=== PATIENT | male | born 1965 | race Two or more races ===

== ENCOUNTER → 2020-07-27 14:41 | Outpatient (BNVA) | payer OTHER, SELFPAY | PROVIDERS: PCP Internal Medicine; Visit Provider Urology | DX: N45.1 Epididymitis (principal); E29.1 Testicular hypofunction; N52.9 Male erectile dysfunction, unspecified | CPT/HCPCS: 99214 ==

== ENCOUNTER 2020-08-20 17:23 | Emergency (ER) | payer OTHER, SELFPAY ==
--- NOTE | 2020-08-20 18:29 | CT_ITS ---
EXAMINATION: CT ABDOMEN AND PELVIS WITHOUT CONTRAST CLINICAL INFORMATION: Right flank pain COMPARISON: None TECHNIQUE: Multidetector volumetric imaging was performed from the superior aspect of the liver through the pubic symphysis. Sagittal and coronal reformatted images were obtained on the technologist's workstation. This CT examination was performed using dose optimization techniques as appropriate, variously including the following: *Automated exposure control *Adjustment of mA and/or kV according to patient size (this includes techniques or standardized protocols for targeted exams where dose is matched to indication/reason for exam; i.e. extremities or head) *Use of iterative reconstruction technique DLP: 825 mGy-cm FINDINGS: LUNG BASES: Atelectasis present at the right lung base LIVER, GALLBLADDER, AND BILIARY TREE: The liver is normal in size, shape, and attenuation. No focal hepatic lesion or biliary ductal dilatation is present. The gallbladder is contracted but otherwise unremarkable with no evidence of radiopaque gallstones, gallbladder wall thickening, or obvious pericholecystic inflammatory changes. PANCREAS: Unremarkable. SPLEEN: Unremarkable. ADRENAL GLANDS: Unremarkable. KIDNEYS AND URETERS: The kidneys are normal in size, shape, and attenuation. A benign left renal cyst is seen. No solid renal masses are present. No hydronephrosis, hydroureter, or calculi seen. No perinephric stranding. BLADDER: Unremarkable. GASTROINTESTINAL TRACT: The small and large bowel are unremarkable. The appendix is unremarkable. ABDOMINAL WALL: No significant hernia is appreciated. LYMPH NODES: Normal. VASCULAR: Unremarkable. PELVIC VISCERA: Prostate and seminal vesicles appear normal. OSSEOUS STRUCTURES: Mild degenerative changes present in the lower thoracic and upper lumbar spine. CT/CT abdomen pelvis wo con IMPRESSION: A cause for the patient's right flank pain is not found. No renal calculi or hydronephrosis is seen. The appendix is normal. Incidental note made of a benign left renal cyst.
[2020-08-20 18:36] VITALS: BP 106/68; PULSE 78; RESP 16; TEMP 37.1; O2SAT 100; BMI 31.4
--- NOTE | 2020-08-20 18:42 | ED.GENADULT ---
HPI - General Adult General Chief complaint: Back Pain/Injury Stated complaint: back pain Time Seen by Provider: 08/20/20 18:29 Source: patient Mode of arrival: ambulatory Limitations: no limitations History of Present Illness HPI narrative: patient presents to ED for multiple complaints. Patient presents to ED for 7 days with dysuria and flank pain. Patient's concern for STD. Patient states he was having sex 7 days ago and the condom broke and ever since he has had symptoms. Patient states no nausea, vomiting, fever, chills, or recent trauma to the back or abdomen area. Patient denies any testicular pain, testicular swelling, or penile lesions. Patient denies any penile discharge. Related Data Home Medications Medication Instructions Recorded Confirmed tamsulosin 0.4 mg capsule 0.4 mg PO BEDTIME 07/27/20 07/27/20 Previous Rx's Medication Instructions Recorded doxycycline hyclate 100 mg tablet 100 mg PO BID 28 Days #56 tab 07/27/20 cyclobenzaprine 10 mg PO TID PRN #18 tab 08/20/20 naproxen 500 mg PO BID PRN #20 tab 08/20/20 Allergies Allergy/AdvReac Type Severity Reaction Status Date / Time Sulfa (Sulfonamide Allergy Unknown Verified 06/15/20 00:00 Antibiotics) sulfamethoxazole Allergy Unknown HIVES Unverified 06/30/20 18:25 [From BACTRIM] trimethoprim [From BACTRIM] Allergy Unknown HIVES Unverified 06/30/20 18:25 Review of Systems Review of Systems: Yes all other systems are reviewed and are negative Constitutional: Constitutional: Reports as per HPI and Reports no additional constitutional complaints Eyes: Eyes: Reports as per HPI and Reports no additional eye complaints ENT: Reports system reviewed and no additional complaints, except as documented and Reports as per HPI Cardiovascular: Cardiovascular: Reports as per HPI and Reports no additional cardiovascular complaints Respiratory: Respiratory: Reports as per HPI and Reports no additional respiratory complaints Gastrointestinal: Gastrointestinal: Reports as per HPI and Reports no additional gastrointestinal complaints Genitourinary: Comments: Dysuria Musculoskeletal: Musculoskeletal: Reports no additional musculoskeletal complaints and Reports as per HPI Comments: flank pain Neurologic: Reports system reviewed and no additional complaints, except as documented and Reports as per HPI Psychiatric: Psychiatric: Reports no additional psychiatric complaints and Reports as per HPI Endocrine: Endocrine: Reports no additional endocrine complaints and Reports as per HPI [facility] Past Medical History Medical History (Updated 08/20/20 @ 19:46 by IVAN Shrestha) Diabetes Prostate pain Social History Social History Alcohol intake: never Smoked in Last 30 Days: No Use of substances other than those prescribed or required for medical reasons: No Advance Directives: No Advance Directives Information Provided: Yes Physical Exam Vital Signs: Vital Signs: Last Vital Signs Temp 98.7 F 08/20/20 18:36 Pulse 78 08/20/20 18:36 Resp 16 08/20/20 18:36 BP 106/68 08/20/20 18:36 Pulse Ox 100 08/20/20 18:36 Body Mass Index 31.4 Const: General: cooperative, healthy appearing, comfortable, no acute distress, well developed and alert Orientation/consciousness: oriented to place, oriented to time and patient oriented x3 HENMT: Head: Yes normal to inspection Eyes: General: appearance normal, both eyes and all related structures Visual Blackburn: normal visual blackburn by confrontation Neck: Neck: Yes normal visual inspection and Yes full ROM Chest: Chest palpation & inspection: normal inspection of the chest, normal palpation of entire chest wall and no localized rib tenderness Resp: Effort & Inspection: normal respiratory effort and able to speak in complete sentences Auscultation: clear to auscultation bilaterally Cardio: Jugular venous distension: no JVD Heart sounds: S1 normal heart sound present and S2 normal heart sound present GI: Inspection: Yes normal to inspection and No abdominal wall ecchymosis Palpation (GI): Soft to palpation, not firm, nontender, no guarding, not rigid and hepatosplenomegaly present : Other: negative for any testicular lesions, mass, swelling, or tenderness. Negative for any penile discharge or penile lesions. General: No CVA tenderness and Yes no CVA tenderness Back/Spine/Pelvis: Back: no CVA tenderness, No CVA tenderness and No back tenderness Skin: General skin exam: no rashes or lesions noted Neuro: General: oriented to person, oriented to place, oriented to time, patient oriented x3, gait normal and CN's II-XI intact bilaterally Cranial nerves: Yes CN's II-XII intact bilaterally Extrem: General: Yes normal to inspection and Yes full ROM Psych: Appearance: grossly normal, well kempt and not disheveled Course Course Course Narrative: patient basic urine analysis will be sent and also chlamydia gonorrhea urinalysis. Patient also sent for abdominal CT scan to rule out kidney stone. Patient is stable Reevaluation(s) Reevaluation #1: Patient's CT scan came back negative for kidney stones. Patient UA negative for any blood or bacteria to indicate UTI. Patient will be treated empirically for STIs. CT scan shows lumbar spine arthritis which could be contributing to patient's back pain Time: 19:35 Medical Decision Making MDM Narrative Medical decision making narrative: lumbar arthritis. STI exposure Lab Data Labs: Lab Results 08/20/20 08/20/20 Range/Units 19:08 19:08 Urine Color YELLOW Urine Appearance CLEAR Urine pH 5.5 (5.0-8.0) Ur Specific [place] <= 1.005 (1.005-1.025) Urine Protein NEG (NEG-TRACE) MG/DL Urine Glucose (UA) NEG (NEG) MG/DL Urine Ketones NEG (NEG) MG/DL Urine Blood NEG (NEG) Urine Nitrite NEG (NEG) Ur Leukocyte Esterase NEG (NEG) Chlam trachomat DNA PCR Cancelled N.gonorrhoeae DNA (PCR) Cancelled Discharge Plan Discharge Clinical Impression: Lumbar radiculopathy Patient Disposition: Home, Self-Care Instructions: Lumbar Radiculopathy (ED), Arthritis (ED) Prescriptions: New naproxen 500 mg tablet 500 mg PO BID PRN (Reason: pain) Qty: 20 RF: 0 cyclobenzaprine 10 mg tablet 10 mg PO TID PRN (Reason: muscle spasm) Qty: 18 RF: 0 No Action tamsulosin [Flomax] 0.4 mg capsule 0.4 mg PO BEDTIME RF: 0 doxycycline hyclate 100 mg tablet 100 mg PO BID 28 Days Qty: 56 RF: 0 Referrals: Katie Mooney MD [Primary Care Provider] - 2 days (lumbar arthritis.) Interventions: ED Discharge Assessment Last Done: 08/20/20 20:20 Discharge Date/Time: 08/20/20 20:31 Print Language: Yoruba
[2020-08-20 19:17] LABS: Appearance Urine CLEAR; Color Urine YELLOW; Glucose Urine UA NEG (NEG); Leukocyte Esterase Urine NEG (NEG); Nitrite Urine NEG (NEG); PH 5.5 (5.0-8.0); Specific Gravity - Urine <= 1.005 (1.005-1.025); Urine Blood NEG (NEG); Urine Ketones NEG (NEG); Urine Protein NEG (NEG-TRACE)
[2020-08-20] MEDS: Azithromycin 500 MG TABLET 1000 MG PO (20:12)
[2020-08-20] MEDS: cefTRIAXone sodium 250 MG, Lidocaine HCl 1 % MPF 0.9 ML IM (20:12)
[2020-08-20] MEDS: Ibuprofen 800 MG TABLET PO (20:12)
[2020-08-21 14:50] LABS: CT PCR NOT DETECTED (Not Detect.); NG PCR NOT DETECTED (Not Detect.)
== END 2020-08-20 20:31 | disposition home or self-care (01) ==
PROVIDERS: Physician Assistant; Emergency Provider Emergency Medicine; PCP Internal Medicine
DX: M54.16 Radiculopathy, lumbar region (principal); Z79.899 Other long term (current) drug therapy; Z20.2 Contact with and (suspected) exposure to infections with a predominantly sexual mode of transmission
CPT/HCPCS: 74176; 81003; 87491; 87591; 96372; 99284; J0696

== ENCOUNTER → 2020-08-24 15:13 | Outpatient (BNVA) | payer OTHER, SELFPAY | PROVIDERS: PCP Internal Medicine; Referring Provider Internal Medicine; Visit Provider Urology | DX: N45.1 Epididymitis (principal) | CPT/HCPCS: 99212 ==

== ENCOUNTER 2020-09-05 12:52 | Outpatient (REF) | payer OTHER, SELFPAY ==
[2020-09-10 11:41] LABS: Testosterone, Total 240 ng/dL (250-1100)
== END 2020-09-05 12:53 | disposition home or self-care (01) ==
LOC: HO.10HDL 12:52
PROVIDERS: Visit Provider Urology
DX: R79.89 Other specified abnormal findings of blood chemistry (principal)
CPT/HCPCS: 84403

== ENCOUNTER → 2020-09-14 13:02 | Outpatient (BNVA) | payer OTHER, SELFPAY | PROVIDERS: PCP Internal Medicine; Visit Provider Urology | DX: E29.1 Testicular hypofunction (principal); N41.9 Inflammatory disease of prostate, unspecified; N50.812 Left testicular pain | CPT/HCPCS: 99212 ==

== ENCOUNTER 2020-10-03 06:26 | Day surgery (SDC) | payer OTHER, SELFPAY ==
[2020-09-26 12:54] VITALS: BMI 31.4
--- NOTE | 2020-09-30 12:06 | HO.ANESPROP2 ---
Documented by User: Ashley Dewitt 09/30/20 12:08 HPI - Anesthesia Eval Consult details Narrative: 54yo M for Inguinal Denervation Testicle PMFSH Past Medical History Medical History Anxiety Diabetes Low back pain Prostate pain Surgical History Surgical History Hx of tonsillectomy Social History Social History Alcohol intake: current Alcohol intake frequency: holidays/special occasions only Alcohol type: beer and wine Smoking Status: Never smoker Use of substances other than those prescribed or required for medical reasons: No Advance Directives: No Advance Directives Information Provided: No Advance Directives on File: No Meds Allergies Allergy/AdvReac Type Severity Reaction Status Date / Time Sulfa (Sulfonamide Allergy Unknown Hives Verified 09/26/20 12:53 Antibiotics) sulfamethoxazole Allergy Unknown HIVES Verified 09/26/20 12:53 [From BACTRIM] trimethoprim [From BACTRIM] Allergy Unknown HIVES Verified 09/26/20 12:53 Home Medications Medication Instructions Recorded Confirmed Type tamsulosin 0.4 mg capsule 0.4 mg PO BEDTIME 07/27/20 07/27/20 History Exam Exam Date and Time: September 30, 2020 1206 Height,Weight and Vital Signs: Height 5 ft 11 in Weight 102.058 kg Assessment and Plan Assessment Anesthesia Assessment: Chart Reviewed Documented by User: Faheem Beltrán 10/03/20 07:15 [facility] Past Medical History Medical History Anxiety Diabetes Low back pain Prostate pain Surgical History Surgical History Hx of tonsillectomy Social History Social History Alcohol intake: current Alcohol intake frequency: holidays/special occasions only Alcohol type: beer and wine Smoking Status: Never smoker Use of substances other than those prescribed or required for medical reasons: No Advance Directives: No Advance Directives Information Provided: No Advance Directives on File: No Meds Allergies Allergy/AdvReac Type Severity Reaction Status Date / Time Sulfa (Sulfonamide Allergy Unknown Hives Verified 09/26/20 12:53 Antibiotics) sulfamethoxazole Allergy Unknown HIVES Verified 09/26/20 12:53 [From BACTRIM] trimethoprim [From BACTRIM] Allergy Unknown HIVES Verified 09/26/20 12:53 Home Medications Medication Instructions Recorded Confirmed Type tamsulosin 0.4 mg capsule 0.4 mg PO BEDTIME 07/27/20 07/27/20 History Exam Airway Mallampati Class: III TM Dist: >3cm Neck ROM: Full
[2020-10-03] VITALS (8 sets, daily range): BP systolic 115–143; BP diastolic 72–93; PULSE 69–86; RESP 16; TEMP 36.1–36.4; O2SAT 95–99
[2020-10-03] MEDS: ceFAZolin Sodium/Dextrose,Iso 2 GM/50 ML PIGGYBACK IV (07:14)
[2020-10-03] MEDS: Lactated Ringers 1,000 ML 100 ML IVCONT (07:14)
[2020-10-03 07:20] LABS: Glucose, Whole Blood 121 mg/dL (60-115)
--- NOTE | 2020-10-03 08:14 | MHC.SHP ---
Pre-Procedural Eval Section B Chief Complaint: Testicular Pain Details of Present Illness: Left inguinal denervation Relevant Family History (Specify if Yes): No Relevant Social History: None Present Medications: see Short Stay Collaborative assessment Medical History: No relevant PMH History of Previous Operations: No relevant previous surgery Allergies: Allergies Allergy/AdvReac Type Severity Reaction Status Date / Time Sulfa (Sulfonamide Allergy Unknown Hives Verified 09/26/20 12:53 Antibiotics) sulfamethoxazole Allergy Unknown HIVES Verified 09/26/20 12:53 [From BACTRIM] trimethoprim [From BACTRIM] Allergy Unknown HIVES Verified 09/26/20 12:53 Plan I have reviewed the history and physical and performed a pertinent physical examination on my patient. No changes have occurred unless specified.
--- NOTE | 2020-10-03 09:33 | PM.OP ---
Brief Operative Note Date of Service: 10/03/20 Pre-op diagnosis: Left testicular pain Post-op diagnosis: same Procedure: Microscopic Denervation left testicle Surgeon: Lyle Mahmood MD Anesthesia: GLMA Estimated blood loss (mL): 0 Pathology: none sent Condition: stable Disposition: same day
[2020-10-03] MEDS: ondansetron HCL 4 MG/2 ML VIAL IVPUSH (09:40)
--- NOTE | 2020-10-03 09:41 | W.PM.OPN ---
Operative Note Operative Note Date of Service: 10/03/20 Narrative: PreOperative Diagnosis: Left testicular pain Post Operative Diagnosis: Left testicular pain Procedure: Left inguinal microscopic denervation Surgeon: Dr Lyle Mahmood Anesthesia: General Indications for procedure: This is a 54-year-old male. Had presented for left testicular pain. Treated conservatively with anti-inflammatories. Every presentation and persistent pain. In office testicular cord block was performed. This provided relief for over 12 hours. Pain recurred. Since he did get initial relief with the testicular cord block is a suitable candidate for a microscopic inguinal denervation. This was discussed and he wishes to proceed. Understands the primary risks of 1 of hematoma and loss of testicle. Procedure: After informed consent was verified the patient was brought to the operating room and placed in a supine position. anesthesia was administered per protocol. Patient was prepped and draped in sterile fashion. Incision in the subinguinal left region was marked. Local anesthetic was placed subcutaneously and a 5 cm incision was made. Incision was carried down through the subcutaneous fat and toward the testicular cord. We dissected down and the cord was isolated and raised. A paddle pop was placed under the cord. The cord was then divided length ways through the muscle fibers. The cremaster fibers were then divided circumferentially using bipolar cautery and sharp dissection. With the divided cremasteric fibers the cord was then split into the bundles. There was the vascular bundle and the associated vas deferens cord. Attention was 1st paid to the vas deferens cord. The covering invagination is were divided using bipolar cautery and sharp dissection. When the cord had been exposed over 1 cm the area sharp blade was taken and then gently stroke against the vas deferens in order to denervate a 1 cm segment. Be vascular pedicle had been isolated in the fibers surrounding this were also divided. The artery was identified using Doppler pulse. When the dissection was completed the cord was placed back to its normal position. The incision was irrigated. The subcutaneous tissue was closed with interrupted 3-0 Vicryl and the skin reapproximated with a running 4-0 Monocryl suture. Skin dressing using glue was applied. He tolerated procedure well was extubated in the operating room transferred in stable condition to recovery area. Pathology: None Drains: None
--- NOTE | 2020-10-03 10:59 | HO.POSTANES ---
Post Anesthesia Evaluation Post Anesthesia Evaluation Vital Signs: Vital Signs Temp Pulse Resp BP Pulse Ox 10/03/20 10:35 97 F 77 16 123/78 96 10/03/20 10:20 75 16 129/81 95 10/03/20 10:05 69 16 132/86 99 10/03/20 09:50 85 16 132/80 97 10/03/20 09:45 83 16 121/77 96 10/03/20 09:40 86 16 143/93 H 96 10/03/20 09:35 97.6 F 81 16 138/92 H 96 10/03/20 06:54 96.9 F 76 16 115/72 96 Anesthesia: General LMA Mental Status: Awake Pain Control: Satisfactory Nausea/Vomiting: None Hydration: Adequate Anesthesia-Related Issues: No Anes. Related Issues
== END 2020-10-03 11:15 | disposition home or self-care (01) ==
PROVIDERS: PCP Internal Medicine; Visit Provider Urology
PROC: (CPT 55899; principal; 2020-10-03 08:10)
DX: N50.812 Left testicular pain (principal); E29.1 Testicular hypofunction; N41.9 Inflammatory disease of prostate, unspecified; E11.9 Type 2 diabetes mellitus without complications; Z79.899 Other long term (current) drug therapy; Z88.2 Allergy status to sulfonamides
CPT/HCPCS: 55899; 69990; 82947; J0690; J1100; J2250; J2405; J3010

== ENCOUNTER → 2020-11-29 15:21 | Outpatient (BNVA) | payer OTHER, SELFPAY | PROVIDERS: PCP Internal Medicine; Visit Provider Urology ==

== ENCOUNTER → 2021-01-11 10:38 | Outpatient (BNVA) | payer OTHER, SELFPAY | PROVIDERS: PCP Internal Medicine; Visit Provider Urology | DX: Z13.89 Encounter for screening for other disorder (principal) | CPT/HCPCS: 99212 ==

== ENCOUNTER 2021-04-05 14:46 | Outpatient (REF) | payer OTHER, SELFPAY ==
[2021-04-05 15:09] LABS: Hematocrit 41.8 % (42-52); Hemoglobin 14.2 g/dl (14.0-18.0); Mean Corpuscular Volume 85.3 fL (80-98); Mean Platelet Volume 10.6 fL (9.4-12.4); Platelet Count 260 X10*3/uL (160-400); Red Cell Distribution Width 13.2 % (11.0-16.0); White Blood Count 6.6 X10*3/uL (4.8-10.8)
[2021-04-10 17:33] LABS: Testosterone, Total 230 ng/dL (250-1100)
== END 2021-04-05 14:47 | disposition home or self-care (01) ==
LOC: HO.LAB 14:46
PROVIDERS: PCP Internal Medicine; Visit Provider Urology
DX: Z12.5 Encounter for screening for malignant neoplasm of prostate (principal); E29.1 Testicular hypofunction; N13.8 Other obstructive and reflux uropathy; N40.1 Benign prostatic hyperplasia with lower urinary tract symptoms
CPT/HCPCS: 36415; 84153; 84403; 85027

== ENCOUNTER → 2021-04-13 14:30 | Outpatient (BNVA) | payer OTHER, SELFPAY | PROVIDERS: PCP Internal Medicine; Visit Provider Urology | DX: E29.1 Testicular hypofunction (principal) | CPT/HCPCS: 99212 ==

== ENCOUNTER 2021-10-11 15:17 | Outpatient (REF) | payer OTHER, SELFPAY ==
[2021-10-11 16:51] LABS: Albumin Level 4.1 g/dL (3.5-5.0)
[2021-10-12 14:11] LABS: Sex Hormone Binding Globulin 30 nmol/L (22-77)
[2021-10-15 09:42] LABS: Testosterone, Total 128 ng/dL (250-1100)
== END 2021-10-11 15:18 | disposition home or self-care (01) ==
LOC: HO.LAB 15:17
PROVIDERS: Visit Provider Urology
DX: E29.1 Testicular hypofunction (principal)
CPT/HCPCS: 36415; 82040; 84270; 84403

== ENCOUNTER → 2021-10-17 16:02 | Outpatient (BNVA) | payer OTHER, SELFPAY | PROVIDERS: PCP Internal Medicine; Visit Provider Urology ==

== ENCOUNTER 2022-04-03 14:21 | Outpatient (REF) | payer OTHER, SELFPAY ==
[2022-04-03 15:08] LABS: Hematocrit 42.6 % (42.0-52.0); Hemoglobin 14.4 g/dl (14.0-18.0); Mean Corpuscular HGB Conc 33.8 g/dl (31.0-36.0); Mean Corpuscular Hemoglobin 28.7 pg (27.0-33.0); Mean Corpuscular Volume 84.9 fL (80.0-98.0); Mean Platelet Volume 10.3 fL (9.4-12.4); Platelet Count 256 X10*3/uL (160-400); Red Blood Count 5.02 X10*6/uL (4.60-5.80)
[2022-04-03 15:54] LABS: Prostate Specific Antigen 0.49 ng/mL (<0.05-4.0)
[2022-04-08 18:45] LABS: Testosterone, Total 205 ng/dL (250-1100)
== END 2022-04-03 14:22 | disposition home or self-care (01) ==
LOC: HO.LAB 14:21
PROVIDERS: PCP Internal Medicine; Visit Provider Urology
DX: E29.1 Testicular hypofunction (principal); Z12.5 Encounter for screening for malignant neoplasm of prostate
CPT/HCPCS: 36415; 84153; 84403; 85027

== ENCOUNTER → 2022-04-13 13:25 | Outpatient (BNVA) | payer OTHER, SELFPAY | PROVIDERS: PCP Internal Medicine; Visit Provider Urology | DX: E29.1 Testicular hypofunction (principal); E34.9 Endocrine disorder, unspecified; N41.1 Chronic prostatitis; Z79.899 Other long term (current) drug therapy | CPT/HCPCS: 99212 ==

== ENCOUNTER → 2022-04-20 13:38 | Outpatient (BNVA) | payer OTHER, SELFPAY | PROVIDERS: PCP Internal Medicine; Visit Provider Urology | DX: E29.1 Testicular hypofunction (principal) | CPT/HCPCS: 96372 ==

== ENCOUNTER 2022-04-30 22:40 | Emergency (ER) | payer OTHER, SELFPAY ==
--- NOTE | ~2022-04-30 | CT_ITS ---
EXAMINATION: CT ABDOMEN AND PELVIS WITHOUT CONTRAST CLINICAL INFORMATION: 56-year-old male with right lower quadrant pain. COMPARISON: 08/20/2020 TECHNIQUE: Multidetector volumetric imaging was performed from the superior aspect of the liver through the pubic symphysis. Sagittal and coronal reformatted images were obtained on the technologist's workstation. This CT examination was performed using dose optimization techniques as appropriate, variously including the following: *Automated exposure control *Adjustment of mA and/or kV according to patient size (this includes techniques or standardized protocols for targeted exams where dose is matched to indication/reason for exam; i.e. extremities or head) *Use of iterative reconstruction technique DLP: 811 mGy-cm FINDINGS: LUNG BASES: Linear opacities of platelike atelectasis in the visualized bases. No pulmonary consolidation or pleural effusion at either lung base. LIVER: The liver has normal size, shape, and attenuation. No evidence of liver mass. GALLBLADDER AND BILIARY TREE: Gallbladder is without radiopaque stones, wall thickening or pericholecystic fluid. No dilated bile ducts. PANCREAS: Normal. No edema, pancreatic ductal dilatation or mass. SPLEEN: Normal. ADRENAL GLANDS: Normal. KIDNEYS AND URETERS: Kidneys are normal in size. No nephrolithiasis or hydronephrosis. 3.2 cm simple cortical cyst of the upper pole of the left kidney is unchanged. No renal imaging follow-up recommended. BLADDER: The bladder is empty but grossly normal. No bladder calculi. BOWEL AND PERITONEUM: Stomach is unremarkable. No dilated loops of bowel. The appendix is normal. No overt bowel wall thickening or mesenteric fat stranding. No ascites or pneumoperitoneum. ABDOMINAL WALL: No abdominal wall hernia. An intermuscular lipoma between the external and internal oblique muscles of the right lateral abdominal wall measures approximately 1.4 x 4.7 x 6 cm. VASCULATURE: Unremarkable. LYMPH NODES: No pathologic sized lymph nodes in the abdomen or pelvis. No inguinal lymphadenopathy. PELVIC VISCERA: Unremarkable. SKELETAL: Chronic multilevel degenerative arthropathy of the thoracolumbar spine. No suspicious bone lesions. CT/CT abdomen pelvis wo con IMPRESSION: * No acute imaging abnormalities in the abdomen or pelvis compared to 08/20/2020. * No dilated bowel loops. No inflammatory changes. No evidence of appendicitis. * No nephrolithiasis or hydronephrosis.
[2022-04-30 22:52] VITALS: BP 118/69; PULSE 73; RESP 15; TEMP 36.8; O2SAT 94; BMI 34.2
[2022-04-30 23:29] LABS: MANUAL DIFF FLAG NO
[2022-04-30 23:30] LABS: Basophils Percent Auto 0.5 % (0-2); Eosinophils Absolute Auto 0.1 X10*3/uL (0.0-0.4); Eosinophils Percent Auto 1.6 % (0-4); Hematocrit 41.8 % (42.0-52.0); Hemoglobin 14.2 g/dl (14.0-18.0); Imm Gran Abs Auto 0.02 X10*3/uL (0.00-0.03); Imm Gran Pct Auto 0.2 % (0.0-0.4); Lymphocytes Absolute Auto 2.5 X10*3/uL (1.2-4.9); Lymphocytes Percent Auto 30.6 % (20-40); Mean Corpuscular Hemoglobin 28.4 pg (27.0-33.0); Mean Corpuscular Volume 83.6 fL (80.0-98.0); Mean Platelet Volume 10.2 fL (9.4-12.4); Monocytes Absolute Auto 0.6 X10*3/uL (0.1-1.2); Monocytes Percent Auto 6.9 % (2-11); Neutrophils Percent Auto 60.2 % (45-73); Platelet Count 272 X10*3/uL (160-400); Red Cell Distribution Width 12.8 % (11.0-16.0); White Blood Count 8.3 X10*3/uL (4.8-10.8)
[2022-04-30 23:37] LABS: Appearance Urine CLEAR; Color Urine YELLOW; Glucose Urine UA NEG (NEG); Leukocyte Esterase Urine NEG (NEG); Nitrite Urine NEG (NEG); PH 6.5 (5.0-8.0); Urine Blood NEG (NEG); Urine Ketones NEG (NEG); Urine Protein NEG (NEG-TRACE)
[2022-04-30 23:47] LABS: Alanine Aminotransferase 27 U/L (0-40); Albumin Level 4.3 g/dL (3.5-5.0); Alkaline Phosphatase 65 U/L (39-117); Anion Gap 11 (12-20); Aspartate Amino Transferase 15 U/L (5-37); Bilirubin Direct 0.2 mg/dL (0.0-0.5); Bilirubin Total 0.3 mg/dL (0.0-1.0); Blood Urea Nitrogen 11 mg/dL (9-16); Calcium 9.3 mg/dL (8.4-10.2); Carbon Dioxide 25 mmol/L (22-29); Chloride 106 mmol/L (96-108); Creatinine Clr Calc Pharmacy 112.3; Estimated Glomerular Filt Rate > 60; Glucose Random 140 mg/dL (60-115); Lipase 23 U/L (8-78); Potassium 4.1 mmol/L (3.3-5.1); Sodium 138 mmol/L (135-145); Total Protein 7.4 g/dL (6.5-8.0)
[2022-05-01 07:40] VITALS: BP 114/73; PULSE 60; RESP 18; TEMP 36.3; O2SAT 95
--- NOTE | 2022-05-01 07:53 | ED.ABDPAIN ---
HPI - Abdominal Pain General Chief Complaint: Abdominal Pain Stated Complaint: Abd pain Time Seen by Provider: 05/01/22 07:53 Source: patient, old records reviewed and per diem interpreter Mode of arrival: ambulatory Limitations: no limitations History of Present Illness HPI narrative: 56 yo male with hx of BPH, DM, here with c/o RLQ abdominal pain x 4 days, had been constipated but was able to go yesterday. He feels nauseated at times as well - no vomiting. Pain is worse with movements. He feels at times it pinches when he urinates. MD elicited complaint: abdominal pain Pertinent past history: none Onset (ago): day(s) (4) Location: RLQ Severity: moderate Quality: sharp Radiation: none Migration to: no migration Exacerbating factors: movement Relieving factors: nothing Associated symptoms: nausea and other (he also c/o increased acid production) Related Data Previous Rx's Medication Instructions Recorded cyclobenzaprine 10 mg tablet 10 mg PO TID PRN muscle spasm #18 08/20/20 tabs naproxen 500 mg tablet 500 mg PO BID PRN pain #20 tabs 08/20/20 tramadol 50 mg tablet 50 mg PO Q6H PRN pain #14 tabs 10/03/20 tamsulosin 0.4 mg capsule 0.4 mg PO BEDTIME #90 caps 10/10/20 testosterone 1 % (50 mg/5 gram) 100 mg transdermal DAILY 30 days 10/17/21 transdermal gel packet #300 grams syringe with needle 3 mL 21 gauge #50 ea 04/13/22 x 1 1/2 (BD Luer-Dell Syringe) testosterone cypionate 200 mg/mL 80 mg (0.4 mL) subcut QWEEK 4 04/13/22 intramuscular oil weeks #4 mL (Depo-Testosterone) safety needles 25 gauge x 1 1/2 #50 ea 04/20/22 famotidine 20 mg tablet (Pepcid) 20 mg PO DAILY PRN abdominal 05/01/22 discomfort #30 tabs ondansetron 4 mg disintegrating 4 mg PO Q8H PRN nausea and 05/01/22 tablet vomiting #20 tabs Allergies Allergy/AdvReac Type Severity Reaction Status Date / Time Sulfa (Sulfonamide Allergy Unknown Hives Verified 04/13/22 10:50 Antibiotics) sulfamethoxazole Allergy Unknown HIVES Verified 04/13/22 10:50 [From BACTRIM] trimethoprim [From BACTRIM] Allergy Unknown HIVES Verified 04/13/22 10:50 Review of Systems Review of Systems Constitutional : No Weight loss, No Fever, No Chills ENT/Mouth : No sore throat, No Rhinorrhea Eyes: No Swelling, No Redness Cardiovascular : No Chest Pain, No SOB, NoEdema Respiratory : No Cough, No Sputum, No Wheezing Gastrointestinal : Positive Nausea, no Vomiting, no Diarrhea, positive abdominal Pain, No Hematochezia, No Melena, pos constipation Genitourinary : pos Dysuria, No Urinary Frequency, No Hematuria, No Urgency Musculoskeletal : No joint pain, No Myalgias, No Joint Swelling Skin : No Skin Lesions, No rash Neuro : No Weakness, No Numbness, No Dizziness, No Headache Psych : No Anxiety/Panic, No Depression Heme/Lymph: No Bruising, No Lymphadenopathy Endocrine : No Polyuria, No Polydipsia All other systems reviewed and are negative. [facility] Past Medical History Attestation statement: The following information was validated with the patient. Medical History Anxiety Bladder outlet obstruction Diabetes Low back pain Low testosterone Nocturia Prostate pain Surgical History Hx of tonsillectomy Social History Social History Alcohol intake: current Alcohol intake frequency: holidays/special occasions only Alcohol type: beer and wine Advance Directives: No Advance Directives Information Provided: No Physical Exam ED Vital Signs: Vital Signs - 24 hr 04/30/22 22:52 05/01/22 07:40 Temperature 98.3 F 97.3 F Pulse Rate 73 60 Respiratory Rate 15 18 Blood Pressure 118/69 114/73 Pulse Oximetry 94 95 Oxygen Delivery Method Room Air Room Air BMI result Body Mass Index 34.2 Appearance: Alert. Oriented X3. No acute distress. Eyes: Pupils equal, round and reactive to light. ENT: Pharynx normal. Neck: Normal inspection. Neck supple. CVS: Normal heart rate and rhythm. Pulses normal. Respiratory: No respiratory distress. Breath sounds normal. Abdomen: Soft and mild RLQ ttp no rebound or guarding Skin: Skin warm and dry. Normal skin color. Normal skin turgor. Extremities: No lower extremity edema. No calf ttp Neuro: Oriented X 3. No motor deficit. No sensory deficit. MDM - Abdominal Pain MDM Narrative Medical decision making narrative: 56 yo male with hx of BPH, DM, here with c/o RLQ abdominal pain - at this time will obtain labs, UA, CT scan for renal colic/appendicitis. He is not toxic appearing. Dispo per results and findings. Differential Diagnosis Differential diagnosis: Likely abdominal pain, acute appendicitis, calculus of kidney, constipation, diverticulitis and renal colic Lab Data Result diagrams: 04/30/22 23:22 04/30/22 23:22 Labs: Lab Results 04/30/22 04/30/22 04/30/22 Range/Units 23:22 23:22 23:28 WBC 8.3 (4.8-10.8) X10*3/uL RBC 5.00 (4.60-5.80) X10*6/uL Hgb 14.2 (14.0-18.0) g/dl Hct 41.8 L (42.0-52.0) % MCV 83.6 (80.0-98.0) fL MCH 28.4 (27.0-33.0) pg MCHC 34.0 (31.0-36.0) g/dl RDW 12.8 (11.0-16.0) % Plt Count 272 (160-400) X10*3/uL MPV 10.2 (9.4-12.4) fL Immature Gran % (Auto) 0.2 (0.0-0.4) % Neut % (Auto) 60.2 (45-73) % Lymph % (Auto) 30.6 (20-40) % [place] % (Auto) 6.9 (2-11) % Eos % (Auto) 1.6 (0-4) % Baso % (Auto) 0.5 (0-2) % Lymph # (Auto) 2.5 (1.2-4.9) X10*3/uL [place] # (Auto) 0.6 (0.1-1.2) X10*3/uL Eos # (Auto) 0.1 (0.0-0.4) X10*3/uL Baso # (Auto) 0.0 (0.0-0.2) X10*3/uL Abs Immat Gran (auto) 0.02 (0.00-0.03) X10*3/uL Absolute Neuts (auto) 5.0 (2.0-8.3) x10*3/uL Absolute Nucleated RBC 0.000 (0.0-0.012) X10*3/uL Nucleated RBC % (auto) 0.0 (0.0-0.2) /100WBC Sodium 138 (135-145) mmol/L Potassium 4.1 (3.3-5.1) mmol/L Chloride 106 (96-108) mmol/L Carbon Dioxide 25 (22-29) mmol/L Anion Gap 11 L (12-20) BUN 11 (9-16) mg/dL Creatinine 0.92 (0.5-1.4) mg/dL Estim Creat Clear Calc 112.3 Estimated GFR > 60 Random Glucose 140 H (60-115) mg/dL Calcium 9.3 (8.4-10.2) mg/dL Total Bilirubin 0.3 (0.0-1.0) mg/dL Direct Bilirubin 0.2 (0.0-0.5) mg/dL AST 15 (5-37) U/L ALT 27 (0-40) U/L Alkaline Phosphatase 65 (39-117) U/L Total Protein 7.4 (6.5-8.0) g/dL Albumin 4.3 (3.5-5.0) g/dL Lipase 23 (8-78) U/L Urine Color YELLOW Urine Appearance CLEAR Urine pH 6.5 (5.0-8.0) Ur Specific [place] 1.010 (1.005-1.025) Urine Protein NEG (NEG-TRACE) MG/DL Urine Glucose (UA) NEG (NEG) MG/DL Urine Ketones NEG (NEG) MG/DL Urine Blood NEG (NEG) Urine Nitrite NEG (NEG) Ur Leukocyte Esterase NEG (NEG) ECG Data Attestation: I personally reviewed and interpreted this ECG as follows: ECG interpretation date: 05/01/22 ECG interpretation time: 10:06 Interpretation: Rate: 59 Rhythm: sinus bradycardia 1st degree AVB one PAC seen [place]: normal Normal P waves. Normal [place]. Normal QRS complex. ST T wave : normal no DARCI qTC: normal prior studies: no acute ischemia The study has been interpreted contemporaneously by me. . Discharge Plan Discharge Clinical Impression: Abdominal pain Qualifiers: Abdominal location: right lower quadrant Qualified Code(s): R10.31 - Right lower quadrant pain Patient Disposition: Home, Self-Care Instructions: Abdominal Pain (ED) Additional Instructions: return to ED for any worsening symptoms or concerns labs CT scan normal Prescriptions: New famotidine [Pepcid] 20 mg tablet 20 mg PO DAILY PRN (Reason: abdominal discomfort) Qty: 30 0RF ondansetron 4 mg tablet,disintegrating 4 mg PO Q8H PRN (Reason: nausea and vomiting) Qty: 20 0RF No Action tamsulosin 0.4 mg capsule 0.4 mg PO BEDTIME Qty: 90 2RF testosterone cypionate [Depo-Testosterone] 200 mg/mL oil 80 mg subcut QWEEK 28 Days Qty: 4 5RF naproxen 500 mg tablet 500 mg PO BID PRN (Reason: pain) Qty: 20 0RF cyclobenzaprine 10 mg tablet 10 mg PO TID PRN (Reason: muscle spasm) Qty: 18 0RF Rx Instructions: side effect is drowsiness. Do not take at work or while driving. tramadol 50 mg tablet 50 mg PO Q6H PRN (Reason: pain) Qty: 14 0RF testosterone 1 % (50 mg/5 gram) gel in packet 100 mg transdermal DAILY 30 Days Qty: 300 5RF Rx Instructions: apply 2 packets daily and rubbed on skin surface until dry (DME) syringe with needle [BD Luer-Dell Syringe] 3 mL 21 gauge x 1 1/2 syringe See Rx Instructions .MEDSUPPLY Qty: 50 0RF Rx Instructions: As directed (DME) safety needles 25 gauge x 1 1/2 needle See Rx Instructions .ROUTE .MEDSUPPLY Qty: 50 0RF Rx Instructions: As directed one weekly Stand Alone Forms: Work/School Release Interventions: ED Discharge Assessment Last Done: 05/01/22 10:28 Discharge Date/Time: 05/01/22 10:29 Print Language: Setswana
--- NOTE | 2022-05-01 08:02 | ECG_ITS ---
Test Reason : cp Blood Pressure : / mmHG Vent. Rate : 059 BPM Atrial Rate : 059 BPM P-R Int : 210 ms QRS Dur : 086 ms QT Int : 414 ms P-R-T Axes : 046 050 046 degrees QTc Int : 409 ms Sinus bradycardia with 1st degree A-V block with Premature atrial complexes Otherwise normal ECG When compared with ECG of 11-AUG-2012 13:18, Premature atrial complexes are now Present DC interval has increased Referred By: Tarah Khanna Electronically Signed By:Josafat Chen
[2022-05-01] MEDS: Magnesium Hydrox/Alum Hydrox 30 ML ORAL.SUSP 15 ML PO (08:24)
[2022-05-01] MEDS: Ondansetron ODT 4 MG TAB.RAPDIS TRANSLINGU (08:24)
[2022-05-01] MEDS: Lidocaine HCl Viscous 2 % 15 ML SOLUTION MUCOUS MEM (08:24)
== END 2022-05-01 10:29 | disposition home or self-care (01) ==
PROVIDERS: Emergency Provider Emergency Medicine; PCP Internal Medicine
DX: R10.31 Right lower quadrant pain (principal); R11.0 Nausea; R00.1 Bradycardia, unspecified; E11.9 Type 2 diabetes mellitus without complications
CPT/HCPCS: 36415; 74176; 80053; 81003; 82248; 83690; 85025; 93005; 99284

== ENCOUNTER 2022-06-14 11:19 | Outpatient (REF) | payer OTHER, SELFPAY ==
[2022-06-14 12:20] LABS: Hematocrit 43.8 % (42.0-52.0); Hemoglobin 14.6 g/dl (14.0-18.0); Mean Corpuscular HGB Conc 33.3 g/dl (31.0-36.0); Mean Corpuscular Hemoglobin 28.2 pg (27.0-33.0); Mean Corpuscular Volume 84.7 fL (80.0-98.0); Mean Platelet Volume 10.7 fL (9.4-12.4); Platelet Count 250 X10*3/uL (160-400); Red Blood Count 5.17 X10*6/uL (4.60-5.80); Red Cell Distribution Width 12.7 % (11.0-16.0); White Blood Count 7.7 X10*3/uL (4.8-10.8)
[2022-06-14 13:04] LABS: PSA,Total (Free>4and<10) 0.36 ng/mL (0.00-4.00)
[2022-06-22 01:17] LABS: Testosterone, Free 27.7 pg/mL (35.0-155.0); Testosterone, Total 175 ng/dL (250-1100)
== END 2022-06-14 11:20 | disposition home or self-care (01) ==
LOC: HO.LAB 11:19
PROVIDERS: PCP Internal Medicine; Visit Provider Urology
DX: C64.9 Malignant neoplasm of unspecified kidney, except renal pelvis (principal); E29.1 Testicular hypofunction
CPT/HCPCS: 36415; 84153; 84402; 84403; 85027

== ENCOUNTER 2022-11-09 13:49 | Outpatient (REF) | payer OTHER, SELFPAY ==
[2022-11-16 20:34] LABS: Testosterone, Free 32.7 pg/mL (35.0-155.0); Testosterone, Total 264 ng/dL (250-1100)
[2022-11-17 04:23] LABS: Estradiol Ultra Sensitive 20 pg/mL (< OR = 29)
== END 2022-11-09 13:50 | disposition home or self-care (01) ==
LOC: HO.LAB 13:49
PROVIDERS: PCP Internal Medicine; Visit Provider Urology
DX: E29.1 Testicular hypofunction (principal)
CPT/HCPCS: 36415; 82670; 84402; 84403

== ENCOUNTER → 2022-11-21 14:54 | Outpatient (BNVA) | payer OTHER, SELFPAY | PROVIDERS: PCP Internal Medicine; Visit Provider Urology | DX: N40.1 Benign prostatic hyperplasia with lower urinary tract symptoms (principal); N13.8 Other obstructive and reflux uropathy; E29.1 Testicular hypofunction | CPT/HCPCS: 99212 ==

== ENCOUNTER 2023-06-27 14:41 | Outpatient (REF) | payer OTHER, SELFPAY ==
[2023-06-27 16:13] LABS: Prostate Specific Antigen 0.65 ng/mL (<0.05-4.0)
[2023-07-03 00:59] LABS: Testosterone, Total 197 ng/dL (250-1100)
== END 2023-06-27 14:42 | disposition home or self-care (01) ==
LOC: HO.LAB 14:41
PROVIDERS: PCP Internal Medicine; Visit Provider Urology
DX: Z12.5 Encounter for screening for malignant neoplasm of prostate (principal); E29.1 Testicular hypofunction
CPT/HCPCS: 36415; 84153; 84403

== ENCOUNTER 2023-08-02 10:17 | Outpatient (AMB) | payer OTHER, SELFPAY ==
--- NOTE | 2023-08-02 10:24 | A.OFFVIS_ITS ---
Intake Intake Visit Reasons: 6M PSA/TESTOSTERONE(set) Intake Note: Patient is Present for Follow Up Labs Urology Medication: Testosterone Antibiotic Allergies:Sulfa, Trimethroprim Blood Thinners: None Pharmacy: [facility] Compliants: Patient no longer wants to use injection he is requesting testosterone cream that he can apply to skin Allergies Sulfa (Sulfonamide Antibiotics) Allergy (Unknown, Verified 08/02/23 10:27) Hives sulfamethoxazole [From BACTRIM] Allergy (Unknown, Verified 08/02/23 10:27) HIVES trimethoprim [From BACTRIM] Allergy (Unknown, Verified 08/02/23 10:27) HIVES Medication List - Last Reconciled 08/02/23 by Lyle Mahmood MD naproxen 500 mg PO BID PRN ondansetron 4 mg PO Q8H PRN safety needles As directed one weekly syringe with needle (BD Luer-Dell Syringe) As directed testosterone cypionate (Depo-Testosterone) 80 mg (0.4 mL) subcut QWEEK 4 weeks tramadol 50 mg PO Q6H PRN HPI HPI Comments History of Present Illness Details Bebeto is a pleasant male. He is a patient of Dr Mooney He is seen for the following urologic conditions - lower urinary tract symptoms - hypogonadism Slovenian translation provided by qualified medical professionals Would like to switch from injectables to AndroGel Prescription provided 3 month follow-up repeat labs Hypogonadism: Would like to switch to topical therapy He presents today for further evaluation and followup of his hypogonadism. Prior therapy includes injectable Initial symptoms include erectile dysfunction Yes decreased libido Yes change in mood/depression Yes in muscle size/strength Yes increased fatigue/malaise Yes increased abdominal fat No tender breasts/gynecomastia No hair loss No osteopenia No Laboratory results 03/02 240 06/02 386 clomiphene 1/2 tab daily - 09/02 T 240, LH and FSH 4.0 - 04/03 T 230, 10/03 128, 04/04 205 0.5 42, 11/05 264 F32 Lower Urinary Tract Symptoms: Current visit is for further evaluation of, lower urinary tract symptoms, predominate obstructive symptoms. Current treatment includes medication, alpha juancarlos. Prostate Symptom Score 04/02 , Mild (0-8), Bother 2. Symptoms include incomplete emptying, weak stream, and are improving. Results from testing include cystoscopy Enlarged median lobe 6/20 Prior Prostate Score moderate. Prostate volume 30-50gm. Testing at next visit will include bladder scan. Treatment plan continue with current medications. Prostatitis/CPPS: Alpha-juancarlos helps with urination stream in strength. - continue tamsulosin They present for evaluation of, chronic prostatitis. He is currently being treated with antibiotics. Pain is present perineum, epididymis. Associated conditions include STDs No nephrolithiasis No diabetes No inflammatory bowel disease No diverticulitis No radiation to the pelvis No surgery none Prostatitis was diagnosed March 2019. [facility] Medical History Bladder outlet obstruction Nocturia Low testosterone Low back pain Anxiety Prostate pain Diabetes Surgical History Hx of tonsillectomy Social History Alcohol intake: current Alcohol intake frequency: holidays/special occasions only Alcohol type: beer and wine Review of Systems Const Denies chills and Denies fever(s) Card Reports no additional complaints and Denies syncope Resp Denies cough GI Denies abdominal pain and Denies heartburn Reports as per HPI and Denies change in libido Neuro Denies syncope Psych Denies change in libido Endo Denies change in libido Physical Exam Const General: cooperative, healthy appearing, comfortable and no acute distress Orientation/consciousness: patient oriented x3 HEENT Face and sinus: Yes normal facial exam Mouth: moist mucous membranes Neck Neck: Yes normal visual inspection, Yes full ROM and Yes trachea midline Chest Chest palpation & inspection: normal inspection of the chest Resp Effort & Inspection: normal respiratory effort, able to speak in complete sentences and no respiratory distress GI Inspection: Yes normal to inspection Back/Spine/Pelvis Cervical Spine: normal cervical lordosis Thoracic/Lumbar Spine: thoracic and lumbar spine normal to inspection Skin General skin exam: no rashes or lesions noted Neuro General: patient oriented x3, gait normal, tone normal and moves all extremities Extrem General: Yes normal to inspection and Yes capillary refill normal Assessment & Plan Assessment & Plan (1) Hypogonadism in male: Code(s): E29.1 - Testicular hypofunction Plan Three month follow-up labs Orders: Orders Complete Blood Count no Diff 3 Months E29.1 - Testicular hypofunction Prostate Specific Antigen 3 Months E29.1 - Testicular hypofunction Testosterone, Free/Total 3 Months E29.1 - Testicular hypofunction Medications: New testosterone apply 1 pumps over each shoulder 2 pumps topical DAILY 75 grams 1RF 30 days E29.1 - Testicular hypofunction, R79.89 - Other specified abnormal findings of blood chemistry Patient Instructions: Imaging studies, laboratory and physical exam results were discussed and reviewed in detail. No major barriers to patient understanding were identified. An opportunity to ask questions regarding the treatment plan was provided. All questions were answered. The patient expressed understanding and agreement with the above treatment plan. The patient is aware they should contact our office by phone for worsening of their current condition or the appearance of new urologic symptoms. Compliance is encouraged with any medications and followup testing that is ordered. It is a privilege to participate in the urologic care of your patient. If you have any questions or concerns regarding treatment for the above conditions, or other urologic issues, please do not hesitate to contact me. The office telephone contact is [phone]. This note is constructed using voice recognition software. While every effort has been made to ensure accuracy lathe operator contact lens errors may have been included. Yours sincerely, Dr Lyle Mahmood MD, [facility] - Urology Providers of Expert, Compassionate Care for the Genitourinary System Coding Level of Care Code Est Pt Level 4 (09017) Diagnoses Hypogonadism in male E29.1
== END 2023-08-02 11:16 | disposition home or self-care (01) ==
PROVIDERS: PCP Internal Medicine; Visit Provider Urology
DX: E29.1 Testicular hypofunction (principal)
CPT/HCPCS: 99214

== ENCOUNTER → 2023-08-02 10:17 | Outpatient (BNVA) | payer OTHER, SELFPAY | PROVIDERS: PCP Internal Medicine; Visit Provider Urology | DX: E29.1 Testicular hypofunction (principal); N40.1 Benign prostatic hyperplasia with lower urinary tract symptoms; N13.8 Other obstructive and reflux uropathy; R35.1 Nocturia | CPT/HCPCS: 99212 ==

== ENCOUNTER 2023-10-31 11:23 | Outpatient (REF) | payer OTHER, SELFPAY ==
[2023-10-31 12:22] LABS: Hematocrit 43.3 % (42.0-52.0); Hemoglobin 14.7 g/dl (14.0-18.0); Mean Corpuscular HGB Conc 33.9 g/dl (31.0-36.0); Mean Corpuscular Hemoglobin 28.6 pg (27.0-33.0); Mean Corpuscular Volume 84.2 fL (80.0-98.0); Mean Platelet Volume 10.4 fL (9.4-12.4); Platelet Count 245 X10*3/uL (160-400); Red Blood Count 5.14 X10*6/uL (4.60-5.80); White Blood Count 8.6 X10*3/uL (4.8-10.8)
[2023-10-31 13:45] LABS: Prostate Specific Antigen 0.55 ng/mL (<0.05-4.0)
[2023-11-04 16:14] LABS: Testosterone, Free 88.6 pg/mL (35.0-155.0); Testosterone, Total 579 ng/dL (250-1100)
== END 2023-10-31 11:24 | disposition home or self-care (01) ==
LOC: HO.LAB 11:23
PROVIDERS: Visit Provider Urology
DX: E29.1 Testicular hypofunction (principal)
CPT/HCPCS: 36415; 84153; 84402; 84403; 85027

== ENCOUNTER 2024-01-17 14:13 | Outpatient (REF) | payer OTHER, SELFPAY ==
[2024-01-17 15:57] LABS: Prostate Specific Antigen 0.39 ng/mL (<0.05-4.0)
[2024-01-21 23:18] LABS: Testosterone, Total 232 ng/dL (250-1100)
== END 2024-01-17 14:14 | disposition home or self-care (01) ==
LOC: HO.LAB 14:13
PROVIDERS: PCP Internal Medicine; Visit Provider Urology
DX: Z12.5 Encounter for screening for malignant neoplasm of prostate (principal); E29.1 Testicular hypofunction
CPT/HCPCS: 36415; 84153; 84403

== ENCOUNTER 2024-03-03 14:17 | Outpatient (AMB) | payer OTHER, SELFPAY ==
--- NOTE | 2024-03-03 14:21 | A.OFFVIS_ITS ---
Intake Visit Reasons: Labs(Set) Intake Note: Patient is Present for Follow Up Labs Urology Medication: Testosterone Antibiotic Allergies:Sulfa, Trimethroprim Blood Thinners: None Pharmacy: [facility] Controls Technician Required: No Accompanied by: Self / Same As Patient Allergies Sulfa (Sulfonamide Antibiotics) Allergy (Unknown, Verified 03/03/24 14:22) Hives sulfamethoxazole [From BACTRIM] Allergy (Unknown, Verified 03/03/24 14:22) HIVES trimethoprim [From BACTRIM] Allergy (Unknown, Verified 03/03/24 14:22) HIVES Medication List - Last Reconciled 03/03/24 by Lyle Mahmood MD naproxen 500 mg PO BID PRN ondansetron 4 mg PO Q8H PRN safety needles As directed one weekly syringe with needle (BD Luer-Dell Syringe) As directed testosterone 2 pumps topical DAILY 30 days testosterone cypionate (Depo-Testosterone) 80 mg (0.4 mL) subcut QWEEK 4 weeks tramadol 50 mg PO Q6H PRN HPI Comments Details: Bebeto is a pleasant male. He is a patient of Dr Mooney He is seen for the following urologic conditions - lower urinary tract symptoms - hypogonadism Nauruan translation provided by qualified medical imaging tech Follow-up from transition from injectables to AndroGel Notices good effect from testosterone Would like to continue Six-month follow-up Hypogonadism: Would like to switch to topical therapy He presents today for further evaluation and followup of his hypogonadism. Prior therapy includes injectable Initial symptoms include erectile dysfunction Yes decreased libido Yes change in mood/depression Yes in muscle size/strength Yes increased fatigue/malaise Yes increased abdominal fat No tender breasts/gynecomastia No hair loss No osteopenia No Laboratory results 03/02 240 06/02 386 clomiphene 1/2 tab daily - 09/02 T 240, LH and FSH 4.0 - 04/03 T 230, 10/03 128, 04/04 205 0.5 42, 11/05 264 F32, 02/04 T 240 FT 88 Lower Urinary Tract Symptoms: Current visit is for further evaluation of, lower urinary tract symptoms, predominate obstructive symptoms. Current treatment includes medication, alpha juancarlos. Prostate Symptom Score 04/02 , Mild (0-8), Bother 2. Symptoms include incomplete emptying, weak stream, and are improving. Results from testing include cystoscopy Enlarged median lobe 04/02 Prior Prostate Score moderate. Prostate volume 30-50gm. Testing at next visit will include bladder scan. Treatment plan continue with current medications. Prostatitis/CPPS: Alpha-juancarlos helps with urination stream in strength. - continue tamsulosin They present for evaluation of, chronic prostatitis. He is currently being treated with antibiotics. Pain is present perineum, epididymis. Associated conditions include STDs No nephrolithiasis No diabetes No inflammatory bowel disease No diverticulitis No radiation to the pelvis No surgery none Prostatitis was diagnosed March 2019. [facility] Medical History Bladder outlet obstruction Nocturia Low testosterone Low back pain Anxiety Prostate pain Diabetes Surgical History Hx of tonsillectomy Social History Alcohol intake: current Alcohol intake frequency: holidays/special occasions only Alcohol type: beer and wine Review of Systems Const Denies chills and Denies fever(s) Card Reports no additional complaints and Denies syncope Resp Denies cough GI Denies abdominal pain and Denies heartburn Reports as per HPI and Denies change in libido Neuro Denies syncope Psych Denies change in libido Endo Denies change in libido Physical Exam Const General: cooperative, healthy appearing, comfortable and no acute distress Orientation/consciousness: patient oriented x3 HEENT Face and sinus: Yes normal facial exam Mouth: moist mucous membranes Neck Neck: Yes normal visual inspection, Yes full ROM and Yes trachea midline Chest Chest palpation & inspection: normal inspection of the chest Resp Effort & Inspection: normal respiratory effort, able to speak in complete sentences and no respiratory distress GI Inspection: Yes normal to inspection Back/Spine/Pelvis Cervical Spine: normal cervical lordosis Thoracic/Lumbar Spine: thoracic and lumbar spine normal to inspection Skin General skin exam: no rashes or lesions noted Neuro General: patient oriented x3, gait normal, tone normal and moves all extremities Extrem General: Yes normal to inspection and Yes capillary refill normal Assessment & Plan Assessment & Plan (1) Hypogonadism in male: Code(s): E29.1 - Testicular hypofunction Category: Medical Plan Six-month follow-up labs Orders: Orders Prostate Specific Antigen 6 Months E29.1 - Testicular hypofunction Testosterone, Total 6 Months E29.1 - Testicular hypofunction Complete Blood Count no Diff 6 Months E29.1 - Testicular hypofunction Prostate Specific Antigen 01/17/24 E29.1 - Testicular hypofunction Testosterone, Total 01/17/24 E29.1 - Testicular hypofunction Medications: Refilled testosterone apply 1 pumps over each shoulder 2 pumps topical DAILY 30 days 75 grams 5RF E29.1 - Testicular hypofunction, R79.89 - Other specified abnormal findings of blood chemistry Patient Instructions: Imaging studies, laboratory and physical exam results were discussed and reviewed in detail. No major barriers to patient understanding were identified. An opportunity to ask questions regarding the treatment plan was provided. All questions were answered. The patient expressed understanding and agreement with the above treatment plan. The patient is aware they should contact our office by phone for worsening of their current condition or the appearance of new urologic symptoms. Compliance is encouraged with any medications and followup testing that is ordered. It is a privilege to participate in the urologic care of your patient. If you have any questions or concerns regarding treatment for the above conditions, or other urologic issues, please do not hesitate to contact me. The office telephone contact is [phone]. This note is constructed using voice recognition software. While every effort has been made to ensure accuracy supervisory investigative specialist errors may have been included. Yours sincerely, Dr Lyle Mahmood MD, [facility] - Urology Providers of Expert, Compassionate Care for the Genitourinary System Coding Level of Care Code Est Pt Level 3 (26688) Diagnoses Hypogonadism in male E29.1
== END 2024-03-03 14:56 | disposition home or self-care (01) ==
PROVIDERS: PCP Internal Medicine; Visit Provider Urology
DX: E29.1 Testicular hypofunction (principal)
CPT/HCPCS: 99213

== ENCOUNTER → 2024-03-03 14:17 | Outpatient (BNVA) | payer OTHER, SELFPAY | PROVIDERS: PCP Internal Medicine; Visit Provider Urology | DX: E29.1 Testicular hypofunction (principal) | CPT/HCPCS: 99212 ==

== ENCOUNTER 2024-10-26 15:01 | Outpatient (REF) | payer OTHER, SELFPAY ==
[2024-10-26 15:49] LABS: Hematocrit 44.7 % (42.0-52.0); Mean Corpuscular HGB Conc 33.6 g/dl (31.0-36.0); Mean Corpuscular Hemoglobin 28.5 pg (27.0-33.0); Mean Platelet Volume 9.8 fL (9.4-12.4); Platelet Count 274 X10*3/uL (160-400); Red Blood Count 5.26 X10*6/uL (4.60-5.80); Red Cell Distribution Width 12.8 % (11.0-16.0); White Blood Count 6.8 X10*3/uL (4.8-10.8)
[2024-10-26 19:11] LABS: Prostate Specific Antigen 0.39 ng/mL (<0.05-4.0)
[2024-10-30 18:24] LABS: Testosterone, Total 184 ng/dL (250-1100)
== END 2024-10-26 15:02 | disposition home or self-care (01) ==
LOC: HO.LAB 15:01
PROVIDERS: PCP Internal Medicine; Visit Provider Urology
DX: E29.1 Testicular hypofunction (principal)
CPT/HCPCS: 36415; 84153; 84403; 85027

== ENCOUNTER 2024-11-03 13:48 | Outpatient (AMB) | payer OTHER, SELFPAY ==
--- NOTE | 2024-11-03 13:48 | A.OFFVIS_ITS ---
Intake Visit Reasons: 6m/Testo/PSA/CBC(pending) Intake Note: Patient is present for 6M/TESTO/PSA/CBC Urology Medication:TESTOSTERONE Antibiotic Allergy:SULFA,BACTRIM Blood Thinner:NONE Customer Service Coordinator Required: No Allergies Sulfa (Sulfonamide Antibiotics) Allergy (Unknown, Verified 11/15/24 20:21) Hives sulfamethoxazole [From BACTRIM] Allergy (Unknown, Verified 11/15/24 20:21) HIVES trimethoprim [From BACTRIM] Allergy (Unknown, Verified 11/15/24 20:21) HIVES HPI Comments Details: Bebeto is a pleasant male. He is a patient of Dr Mooney He is seen for the following urologic conditions - lower urinary tract symptoms - hypogonadism Tamazight translation provided by qualified medical van driver Six-month follow-up Testosterone low T 184 F 88 P 0.39 - but mid range free T Would continue current therapy Hypogonadism: Would like to switch to topical therapy He presents today for further evaluation and followup of his hypogonadism. Prior therapy includes injectable Initial symptoms include erectile dysfunction Yes decreased libido Yes change in mood/depression Yes in muscle size/strength Yes increased fatigue/malaise Yes increased abdominal fat No tender breasts/gynecomastia No hair loss No osteopenia No Laboratory results 03/02 240 06/02 386 clomiphene 1/2 tab daily - 09/02 T 240, LH and FSH 4.0 - 04/03 T 230, 10/03 128, 04/04 205 0.5 42, 11/05 264 F32, 02/04 T 240 FT 88, 11/07 T 184 F 88 P 0.39 Lower Urinary Tract Symptoms: Current visit is for further evaluation of, lower urinary tract symptoms, predominate obstructive symptoms. Current treatment includes medication, alpha juancarlos. Prostate Symptom Score 04/02 , Mild (0-8), Bother 2. Symptoms include incomplete emptying, weak stream, and are improving. Results from testing include cystoscopy Enlarged median lobe 04/02 Prior Prostate Score moderate. Prostate volume 30-50gm. Testing at next visit will include bladder scan. Treatment plan continue with current medications. Prostatitis/CPPS: Alpha-juancarlos helps with urination stream in strength. - continue tamsulosin They present for evaluation of, chronic prostatitis. He is currently being treated with antibiotics. Pain is present perineum, epididymis. Associated conditions include STDs No nephrolithiasis No diabetes No inflammatory bowel disease No diverticulitis No radiation to the pelvis No surgery none Prostatitis was diagnosed March 2019. [facility] Medical History Bladder outlet obstruction Nocturia Low testosterone Low back pain Anxiety Prostate pain Diabetes Surgical History Hx of tonsillectomy Social History Alcohol intake: current Alcohol intake frequency: holidays/special occasions only Alcohol type: beer Smoked in Last 30 Days: No Use of substances other than those prescribed or required for medical reasons: No Advance Directives: No Advance Directives Information Provided: No Review of Systems Const Denies chills and Denies fever(s) Card Reports no additional complaints and Denies syncope Resp Denies cough GI Denies abdominal pain and Denies heartburn Reports as per HPI and Denies change in libido Neuro Denies syncope Psych Denies change in libido Endo Denies change in libido Physical Exam Const General: cooperative, healthy appearing, comfortable and no acute distress Orientation/consciousness: patient oriented x3 HEENT Face and sinus: Yes normal facial exam Mouth: moist mucous membranes Neck Neck: Yes normal visual inspection, Yes full ROM and Yes trachea midline Chest Chest palpation & inspection: normal inspection of the chest Resp Effort & Inspection: normal respiratory effort, able to speak in complete sentences and no respiratory distress GI Inspection: Yes normal to inspection Back/Spine/Pelvis Cervical Spine: normal cervical lordosis Thoracic/Lumbar Spine: thoracic and lumbar spine normal to inspection Skin General skin exam: no rashes or lesions noted Neuro General: patient oriented x3, gait normal, tone normal and moves all extremities Extrem General: Yes normal to inspection and Yes capillary refill normal Assessment & Plan Assessment & Plan (1) Hypogonadism in male: Code(s): E29.1 - Testicular hypofunction Category: Medical Plan Refill testosterone Add Levaquin 14 days for prostatitis Orders: Orders Prostate Specific Antigen 6 Months E29.1 - Testicular hypofunction Complete Blood Count no Diff 6 Months E29.1 - Testicular hypofunction Testosterone, Total 6 Months E29.1 - Testicular hypofunction Medications: New levofloxacin 500 mg PO DAILY 14 tabs 0RF 14 days N41.9 - Inflammatory disease of prostate, unspecified, N39.0 - Urinary tract infection, site not specified Patient Instructions: This note is constructed using voice recognition software. While every effort has been made to ensure accuracy metal tank erector errors may have been included. Imaging studies, laboratory and physical exam results were discussed and reviewed in detail. No major barriers to patient understanding were identified. An opportunity to ask questions regarding the treatment plan was provided. All questions were answered. The patient expressed understanding and agreement with the above treatment plan. The patient is aware they should contact our office by phone for worsening of their current condition or the appearance of new urologic symptoms. Compliance is encouraged with any medications and followup testing that is ordered. It is a privilege to participate in the urologic care of your patient. If you have any questions or concerns regarding treatment for the above conditions, or other urologic issues, please do not hesitate to contact me. The office telephone contact is [phone]. Sincerely, Dr Lyle Mahmood MD, JOSE ANTON[facility] - Urology Compassionate Specialist Care for the Genitourinary System Coding Level of Care Code Est Pt Level 3 (98028) Diagnoses Hypogonadism in male E29.1
== END 2024-11-03 14:13 | disposition home or self-care (01) ==
LOC: HO.HUSH 13:48
PROVIDERS: PCP Internal Medicine; Visit Provider Urology
DX: E29.1 Testicular hypofunction (principal)
CPT/HCPCS: 99213

== ENCOUNTER → 2024-11-03 13:48 | Outpatient (BNVA) | payer OTHER, SELFPAY | PROVIDERS: PCP Internal Medicine; Visit Provider Urology | DX: E29.1 Testicular hypofunction (principal) | CPT/HCPCS: 99212 ==

== ENCOUNTER 2024-11-15 20:06 | Emergency (ER) | payer OTHER, SELFPAY ==
--- NOTE | ~2024-11-15 | CT_ITS ---
CLINICAL HISTORY: fall on ice, neck pain CT cervical spine without contrast Comparison: None Findings: Normal vertebral body alignment. No significant degenerative change. No acute fractures or dislocations. Visualized intracranial contents are unremarkable. Soft tissues of the neck are normal. No consolidation or effusion at the lung apices. IMPRESSION: No acute findings. This document has been electronically signed by: Vicenta Montero MD on 11/15/2024 21:33:05
--- NOTE | ~2024-11-15 | CT_ITS ---
CLINICAL HISTORY: fall on ice, head pain CT head without contrast Comparison: None Findings: No intra-axial mass, midline shift, hydrocephalus, or acute hemorrhage. No significant atrophy-like change or white matter disease. There is no sinus or mastoid fluid. The orbits are within normal limits. No skull fracture. IMPRESSION: 1. No acute intracranial findings. This document has been electronically signed by: Vicenta Montero MD on 11/15/2024 21:33:53
--- NOTE | 2024-11-15 20:06 | ED_ITS ---
HPI - Fall General Chief Complaint: Fall Stated Complaint: fall, back/head pain, no loc/tinners Source: patient Mode of arrival: EMS Limitations: no limitations History of Present Illness ED Provider: Joshua Rosario DO HPI Narrative: 59 year old male with past medical history of NIDDM and BPH not on blood thinners presents to the ED via EMS for evaluation after a fall on ice outside his home. Patient denies prodromal symptoms. He reports that he struck the back of his head after slipping on the ice and has posterior head pain, neck pain and back pain. Ambulates without assistance at baseline. The patient was lying on the ground for approximately 30 minutes, yelling out for help. Bystander called EMS. The patient was unable to stand and ambulate secondary to pain in his head and back. He denies pain in his legs. He is able to provide most of the history via Pashto. Further history obtained with in-person termite exterminator helper. Related Data Previous Rx's ?Medication ?Instructions ?Recorded naproxen 500 mg tablet 500 mg PO BID PRN pain #20 tabs 08/20/20 tramadol 50 mg tablet 50 mg PO Q6H PRN pain #14 tabs 10/03/20 syringe with needle 3 mL 21 gauge #50 ea 04/13/22 x 1 1/2 (BD Luer-Dell Syringe) safety needles 25 gauge x 1 1/2 #50 ea 04/20/22 ondansetron 4 mg disintegrating 4 mg PO Q8H PRN nausea and 05/01/22 tablet vomiting #20 tabs levofloxacin 500 mg tablet 500 mg PO DAILY 14 days #14 tabs 11/03/24 testosterone 2 pump topical DAILY 30 days #75 11/03/24 grams Allergies Allergy/AdvReac Type Severity Reaction Status Date / Time Sulfa (Sulfonamide Allergy Unknown Hives Verified 11/15/24 20:21 Antibiotics) sulfamethoxazole Allergy Unknown HIVES Verified 11/15/24 20:21 [From BACTRIM] trimethoprim [From BACTRIM] Allergy Unknown HIVES Verified 11/15/24 20:21 Review of Systems Review of Systems: Yes all other systems are reviewed and are negative PMFSH Past Medical History Medical History Bladder outlet obstruction Nocturia Low testosterone Low back pain Anxiety Prostate pain Diabetes Surgical History Hx of tonsillectomy Social History Social History Alcohol intake: current Alcohol intake frequency: holidays/special occasions only Alcohol type: beer Smoked in Last 30 Days: No Use of substances other than those prescribed or required for medical reasons: No Advance Directives: No Advance Directives Information Provided: No Physical Exam Vital Signs: Vital Signs: Last Vital Signs Temp 98.0 F 11/15/24 20:13 Pulse 79 11/15/24 20:13 Resp 16 11/15/24 20:13 BP 137/85 11/15/24 20:13 Pulse Ox 95 11/15/24 20:13 O2 Del Method Room Air 11/15/24 20:13 BMI result Body Mass Index 33.5 Constitutional: ?Alert, oriented, speaking in full sentences HEENT: ?Normocephalic, atraumatic. ?Moist mucous membranes Eyes: ?PERRL, EOMI Neck: ?Supple, some midline tenderness diffusely over the cervical spine, cervical collar placed Chest: ?No chest wall tenderness Respiratory: ?Lungs clear to auscultation, no increased work of breathing Cardio: ?Regular rate and rhythm, no murmur, 2+ radial and DP pulses symmetrically GI: ?Soft, nondistended, nontender Back: ?Normal range of motion, diffuse back tenderness. Skin: ?No rash, no lesions Neuro: ?Alert and oriented to person, place and time, moves all 4 extremities, no focal deficits Extremities: ?No swelling or tenderness, full range of motion of the bilateral upper and lower extremities. Psych: ?Calm, alert and cooperative, appropriate behavior Medical Decision Making Medical Decision Making MDM Narrative: Patient presenting after a mechanical fall at home. I do not suspect near syncope or syncope. No prolonged downtime concerning for rhabdomyolysis. He is not anticoagulated, but given his age and severe head pain and neck pain, we will undergo CT imaging. We will address his pain with IV acetaminophen and morphine. We will re-evaluate after pain control. There does not appear to be any other bony abnormalities. Patient will be signed out to next provider pending CT imaging results, re-evaluation and final disposition. Admission/Observation Consideration of admission/observation: Escalation of care including admission/observation considered Discharge Plan Discharge Clinical Impression: Fall, Head trauma, Neck pain, Back pain Patient Disposition: Still a Patient Prescriptions: No Action naproxen 500 mg tablet 500 mg PO BID PRN (Reason: pain) Qty: 20 0RF tramadol 50 mg tablet 50 mg PO Q6H PRN (Reason: pain) Qty: 14 0RF ondansetron 4 mg tablet,disintegrating 4 mg PO Q8H PRN (Reason: nausea and vomiting) Qty: 20 0RF (DME) syringe with needle [BD Luer-Dell Syringe] 3 mL 21 gauge x 1 1/2 syringe See Rx Instructions .MEDSUPPLY Qty: 50 0RF Rx Instructions: As directed (DME) safety needles 25 gauge x 1 1/2 needle See Rx Instructions .ROUTE .MEDSUPPLY Qty: 50 0RF Rx Instructions: As directed one weekly testosterone 20.25 mg/1.25 gram (1.62 %) gel in metered-dose pump 2 pump topical DAILY 30 Days Qty: 75 5RF Rx Instructions: apply 1 pumps over each shoulder levofloxacin 500 mg tablet 500 mg PO DAILY 14 Days Qty: 14 0RF Print Language: Faroese
[2024-11-15 20:10] VITALS: BP 132/86; PULSE 74; O2SAT 96
[2024-11-15 20:13] VITALS: BP 137/85; PULSE 79; RESP 16; TEMP 36.7; O2SAT 95; BMI 33.5
[2024-11-15] MEDS: Acetaminophen 1,000 MG/100 ML PIGGYBACK 400 MG IV (21:47)
[2024-11-15] MEDS: Morphine Sulfate 4 MG/ML CARTRIDGE IVPUSH (21:47)
[2024-11-15 23:12] VITALS: BP 114/59; PULSE 73; RESP 18; TEMP 36.9; O2SAT 95
[2024-11-15] MEDS: Meclizine HCl 25 MG TABLET PO (23:17)
[2024-11-15 23:21] VITALS: BP 114/59; PULSE 73; RESP 18; TEMP 36.9; O2SAT 95
== END 2024-11-15 23:22 | disposition home or self-care (01) ==
PROVIDERS: Emergency Provider Emergency Medicine Emergency Medical Services
DX: S19.9XXA Unspecified injury of neck, initial encounter (principal); S39.92XA Unspecified injury of lower back, initial encounter; S09.90XA Unspecified injury of head, initial encounter; W00.0XXA Fall on same level due to ice and snow, initial encounter; R42 Dizziness and giddiness; M54.2 Cervicalgia; R51.9 Headache, unspecified; Y93.89 Activity, other specified; Y92.9 Unspecified place or not applicable; Y99.8 Other external cause status
CPT/HCPCS: 70450; 72125; 96365; 96375; 99284; J0131; J2270

== ENCOUNTER → 2024-11-15 20:14 | Outpatient (BNV) | payer OTHER, SELFPAY | PROVIDERS: Emergency Provider Emergency Medicine Emergency Medical Services; Visit Provider Student in an Organized Health Care Education/Training Program | DX: R51.9 Headache, unspecified (principal); M54.2 Cervicalgia | CPT/HCPCS: 70450; 72125 ==

== ENCOUNTER 2025-05-04 07:20 | Outpatient (REF) | payer OTHER, SELFPAY ==
[2025-05-04 08:15] LABS: Hematocrit 44.2 % (42.0-52.0); Hemoglobin 15.2 g/dl (14.0-18.0); Mean Corpuscular HGB Conc 34.4 g/dl (31.0-36.0); Mean Corpuscular Hemoglobin 29.1 pg (27.0-33.0); Mean Corpuscular Volume 84.5 fL (80.0-98.0); NRBC Abs Auto 0.000 X10*3/uL (0.0-0.012); NRBC Pct Auto 0.0 /100WBC (0.0-0.2); Platelet Count 259 X10*3/uL (160-400); Red Blood Count 5.23 X10*6/uL (4.60-5.80); White Blood Count 9.4 X10*3/uL (4.8-10.8)
[2025-05-04 09:04] LABS: Prostate Specific Antigen 0.66 ng/mL (<0.05-4.0)
== END 2025-05-04 07:21 | disposition home or self-care (01) ==
LOC: HO.LAB 07:20
PROVIDERS: PCP Internal Medicine; Visit Provider Urology
DX: E29.1 Testicular hypofunction (principal)
CPT/HCPCS: 36415; 84153; 84403; 85027

== ENCOUNTER 2025-05-12 15:47 | Outpatient (AMB) | payer OTHER, SELFPAY ==
--- NOTE | 2025-05-12 15:48 | A.OFFVIS_ITS ---
Intake Visit Reasons: 6m/labs(labs?) Intake Note: Patient is present for 6M/TESTO/PSA/CBC LABS DONE 05/04/25 : PSA 0.66, Testosterone :362 Urology Medication:TESTOSTERONE Antibiotic Allergy:SULFA,BACTRIM Blood Thinner:NONE Animal Husbandry Manager Required: No Accompanied by: Self / Same As Patient Allergies Sulfa (Sulfonamide Antibiotics) Allergy (Unknown, Verified 05/12/25 15:54) Hives sulfamethoxazole (From BACTRIM) Allergy (Unknown, Verified 05/12/25 15:54) HIVES trimethoprim (From BACTRIM) Allergy (Unknown, Verified 05/12/25 15:54) HIVES HPI Comments Details: Bebeto is a pleasant male. He is a patient of Dr Mooney He is seen for the following urologic conditions - lower urinary tract symptoms - hypogonadism Occitan translation provided by qualified internist medical doctor md Six-month follow-up Has been on topical therapy 05/07 360 Was unable to get gel Prescription resent today Hypogonadism: Would like to switch to topical therapy He presents today for further evaluation and followup of his hypogonadism. Prior therapy includes injectable Initial symptoms include erectile dysfunction Yes decreased libido Yes change in mood/depression Yes in muscle size/strength Yes increased fatigue/malaise Yes increased abdominal fat No tender breasts/gynecomastia No hair loss No osteopenia No Laboratory results 03/02 240 06/02 386 clomiphene 1/2 tab daily - 09/02 T 240, LH and FSH 4.0 - 04/03 T 230, 10/03 128, 04/04 205 0.5 42, 11/05 264 F32, 02/04 T 240 FT 88, 11/07 T 184 F 88 P 0.39, 05/07 360 P 0.66 Lower Urinary Tract Symptoms: Current visit is for further evaluation of, lower urinary tract symptoms, predominate obstructive symptoms. Current treatment includes medication, alpha juancarlos. Prostate Symptom Score 04/02 , Mild (0-8), Bother 2. Symptoms include incomplete emptying, weak stream, and are improving. Results from testing include cystoscopy Enlarged median lobe 04/02 Prior Prostate Score moderate. Prostate volume 30-50gm. Testing at next visit will include bladder scan. Treatment plan continue with current medications. Prostatitis/CPPS: Alpha-juancarlos helps with urination stream in strength. - continue tamsulosin They present for evaluation of, chronic prostatitis. He is currently being treated with antibiotics. Pain is present perineum, epididymis. Associated conditions include STDs No nephrolithiasis No diabetes No inflammatory bowel disease No diverticulitis No radiation to the pelvis No surgery none Prostatitis was diagnosed March 2019. [facility] Medical History Bladder outlet obstruction Nocturia Low testosterone Low back pain Anxiety Prostate pain Diabetes Surgical History Hx of tonsillectomy Social History Alcohol intake: current Alcohol intake frequency: holidays/special occasions only Alcohol type: beer Review of Systems Const Denies chills and Denies fever(s) Card Reports no additional complaints and Denies syncope Resp Denies cough GI Denies abdominal pain and Denies heartburn Reports as per HPI and Denies change in libido Neuro Denies syncope Psych Denies change in libido Endo Denies change in libido Physical Exam Const General: cooperative, healthy appearing, comfortable and no acute distress Orientation/consciousness: patient oriented x3 HEENT Face and sinus: Yes normal facial exam Mouth: moist mucous membranes Neck Neck: Yes normal visual inspection, Yes full ROM and Yes trachea midline Chest Chest palpation & inspection: normal inspection of the chest Resp Effort & Inspection: normal respiratory effort, able to speak in complete sentences and no respiratory distress GI Inspection: Yes normal to inspection Back/Spine/Pelvis Cervical Spine: normal cervical lordosis Thoracic/Lumbar Spine: thoracic and lumbar spine normal to inspection Skin General skin exam: no rashes or lesions noted Neuro General: patient oriented x3, gait normal, tone normal and moves all extremities Extrem General: Yes normal to inspection and Yes capillary refill normal Assessment & Plan Assessment & Plan (1) Hypogonadism in male: Code(s): E29.1 - Testicular hypofunction Category: Medical Plan Six-month follow-up lab work Orders: Orders Prostate Specific Antigen 5 Months E29.1 - Testicular hypofunction Testosterone, Total 5 Months E29.1 - Testicular hypofunction Hematocrit 5 Months E29.1 - Testicular hypofunction Medications: Changed From testosterone apply 1 pumps over each shoulder 2 pumps topical DAILY 30 days 75 grams 5RF E29.1 - Testicular hypofunction, R79.89 - Other specified abnormal findings of blood chemistry To testosterone apply 1 pumps over each shoulder daily - rub into skin till dry 2 pumps topical DAILY 75 grams 5RF 30 days E29.1 - Testicular hypofunction, R79.89 - Other specified abnormal findings of blood chemistry Patient Instructions: This note is constructed using voice recognition software. While every effort has been made to ensure accuracy software licensing executive errors may have been included. Imaging studies, laboratory and physical exam results were discussed and reviewed in detail. No major barriers to patient understanding were identified. An opportunity to ask questions regarding the treatment plan was provided. All questions were answered. The patient expressed understanding and agreement with the above treatment plan. The patient is aware they should contact our office by phone for worsening of their current condition or the appearance of new urologic symptoms. Compliance is encouraged with any medications and followup testing that is ordered. It is a privilege to participate in the urologic care of your patient. If you have any questions or concerns regarding treatment for the above conditions, or other urologic issues, please do not hesitate to contact me. The office telephone contact is [phone]. Sincerely, Dr Lyle Mahmood MD, JO[facility] ANTON[facility] - Urology Compassionate Specialist Care for the Genitourinary System Coding Level of Care Code Est Pt Level 4 (09182) Diagnoses Hypogonadism in male E29.1
--- OUTSIDE RECORDS SUMMARY | 2025-05-12 16:21 | XMS_ITS | Clinical Summary ---
Author Organization [facility] Address [address] [place] [id number] Phone Care Team Providers Care Meat Hostess Name Role Phone Katie Mooney MD Primary Care Provider [phone] Allergies Active Allergy Reactions Criticality Noted Date Comments Sulfamethoxazole-Trimethoprim Rash Low 2019 Medications meclizine (ANTIVERT) 25 mg tablet Take 1 tablet (25 mg total) by mouth 3 (three) times a day as needed for dizziness. 50 tablet 11/24/2024 Active Social History Tobacco Use Types Packs/Day Years Used Date Smoking Tobacco: Never Smokeless Tobacco: Never Alcohol Use Standard Drinks/Week Comments Yes 0 (1 standard drink = 0.6 oz pur e alcohol) none x two months Education Answer Date Recorded Are you interested in more education? Not on josafat e 02/08/2023 Are you concerned about learning? Not on file 02/08/2023 No 02/08/2023 No 02/08/2023 Digital Access Answer Date Recorded No 03/12/2023 No 03/12/2023 Reliable internet access at home? Not on file 03/12/2023 Device with a working camera? Not on file Intimate Partner Violence Answer Date R ecorded Are you denied basic needs s uch as food, clothing, or medical care? No 11/24/2024 In the past 12 months have y ou been in a relationship with a person who hurts, threatens, or tries to control you? No 11/24/2024 Are you denied basic needs s uch as food, clothing, or medical care? No 11/24/2024 In the past 12 months have y ou been in a relationship with a person who hurts, threatens, or tries to control you? No 11/24/2024 Sex and Gender Information Value Date Recorded Sex Assigned at Male 07/23/2020 9:05 PM EDT Legal Sex Male 8:41 PM EDT Gender Identity Male 07/23/2020 9:05 PM EDT Sexual Orientation Straight 11/24/2024 5: 48 PM EST Last Filed Vital Signs Vital Sign Reading Time Taken Comments Blood Pressure 118/77 11/24/2024 11:24 PM EST Pulse 83 11/24/2024 11:24 PM EST Temperature 36.6 C (97.9 F) 11/24/2024 11:24 PM EST Respiratory Rate 16 11/24/2024 11:24 PM EST Oxygen Saturation 96% 11/24/2024 11:24 PM EST Inhaled Oxygen Concentration - - Weight 108.4 kg (239 lb) 11/24/2024 5:49 PM EST Height 177.8 cm (5' 10 ) 11/24/2024 5:49 PM EST Body Mass Index 34.29 11/24/2024 5:49 PM EST Plan of Treatment Health Maintenance Due Date Last Done Comments Adult Td,Tdap Booster 1964 LIPID PANEL 1964 DEPRESSION SCREENING 1976 HEPATITIS C SCREENING 1982 HIV ONE-TIME SCREENING (18-6 5 YEARS) 1982 SCREENING FOR DIABETES 1999 COLOGUARD 2009 COLONOSCOPY 2009 COLORECTAL CANCER SCREENING 2009 FIT TEST 2009 FOBT 2009 SIGMOIDOSCOPY 2009 VIRTUAL COLONOSCOPY 2009 PNEUMOCOCCAL VACCINES (50+ years) (1 of 1 - PCV) 2014 ZOSTER VACCINES (1 of 2) 2014 COVID-19 VACCINE (3 - 2023-2 5 season) 2024 07/25/2021, 06/08/2021 RSV VACCINE (1 - 1-dose 75+ series) 2039 SMOKING STATUS SCREENING (On ce After 26 Yrs) Completed 11/24/2024 HEPATITIS A VACCINES Aged Out No long er eligible based on patient's age to complete this topic HIB VACCINES Aged Out No longer eligi ble based on patient's age to complete this topic MENINGOCOCCAL VACCINES (ACWY) Aged Out No longer eligible based on patient's age to complete this topic MENINGOCOCCAL VACCINES (B) Aged Out N o longer eligible based on patient's age to complete this topic Medical Devices Not on file Insurance HE[employer] [place] [address] [place] [address] ACO Care Teams Meat Hostess Relationship Specialty Start Date End Date Katie Mooney MD [address] [place] [address] PCP - General Internal Medicine 07/23/20 Additional Source Comments The information contained in this document represents components of the legal health record. It is not the complete legal health record.[facility]
--- OUTSIDE RECORDS SUMMARY | 2025-05-12 16:21 | XMS_ITS | Clinical Summary ---
Author Organization [facility] it Address [address] [place] [address] Care Team Providers Care Sanitor Name Role Phone Unavailable Primary Care Provider Unavailabl e Surgical History Surgery Date Site/Laterality Comments TONSILLECTOMY PROCEDURE: HISTORICAL TONSILLECTOMY Family History Medical History Relation Name Comments Diabetes Brother 1 Prostate cancer Father Diabetes Mother Relation Name Status Comments Brother 1 Brother 2 Alive Brother 3 Alive Brother 4 Alive Brother 5 Alive Brother 6 Father Mother Alive Social History Tobacco Use Types Packs/Day Years Used Date Smoking Tobacco: Never Smokeless Tobacco: Never Alcohol Use Standard Drinks/Week Comments Not Asked 0 (1 standard drink = 0.6 oz pur e alcohol) Sex and Gender Information Value Date Recorded Sex Assigned at Not on file Legal Sex Male 7:32 PM EST Gender Identity Not on file Sexual Orientation Not on file Obstetrics History Plan of Treatment Health Maintenance Due Date Last Done Comments DTaP,Tdap,and Td Vaccines (1 - Tdap) 1983 Pneumococcal Vaccine: 50+ Years (1 of 1 - PCV) 2014 Zoster Vaccines (1 of 2) 2014 Cholesterol Screening (Lipid Panel) 09/15/2022 Colorectal Cancer Screening: Colonoscopy 09/15/2022 HIV Screening 09/15/2022 Hepatitis C Screening 09/15/2022 Social Influencers of Health Screening 09/15/2022 COVID-19 Vaccine (1 - 2023-2 5 season) 2024 Depression Screening 10/14/2024 Influenza Vaccine (#1) 2025 5, 07/29/2012, 08/23/2011 RSV Immunization Adult Patients (1 - 1-dose 75+ series) 2039 HIB Vaccines Aged Out No longer eligi ble based on patient's age to complete this topic HPV Vaccines Aged Out No longer eligi ble based on patient's age to complete this topic Hepatitis A Vaccines Aged Out No long er eligible based on patient's age to complete this topic Hepatitis B Vaccines Aged Out No long er eligible based on patient's age to complete this topic IPV Vaccines Aged Out No longer eligi ble based on patient's age to complete this topic MMR Vaccines Aged Out No longer eligi ble based on patient's age to complete this topic Meningococcal ACWY Vaccine Aged Out N o longer eligible based on patient's age to complete this topic Meningococcal B Vaccine Aged Out No l onger eligible based on patient's age to complete this topic RSV Immunization Patients Under 20 months Aged Out No longer eligible b ased on patient's age to complete this topic Varicella Vaccines Aged Out No longer eligible based on patient's age to complete this topic
== END 2025-05-12 16:17 | disposition home or self-care (01) ==
LOC: HO.HUSH 15:47
PROVIDERS: Visit Provider Urology
DX: E29.1 Testicular hypofunction (principal)
CPT/HCPCS: 99214

== ENCOUNTER → 2025-05-12 15:47 | Outpatient (BNVA) | payer OTHER, SELFPAY | PROVIDERS: Visit Provider Urology | DX: E29.1 Testicular hypofunction (principal); R79.89 Other specified abnormal findings of blood chemistry | CPT/HCPCS: 99212 ==